=== PATIENT | male | born 1985 | race Caucasian/White ===

== ENCOUNTER 2016-09-18 19:58 | Inpatient (IN) ==
[2016-09-18] MEDS ORDERED: NS 1,000 ML IV ONE (20:53)
[2016-09-18] MEDS ORDERED: HUMULIN R IV ONE (20:53)
[2016-09-18] MEDS ORDERED: ZOFRAN ONE (20:54)
[2016-09-18] MEDS ORDERED: HUMULIN R (PARKWAY) ONE (20:55)
[2016-09-18 21:01] LABS: URINE CULTURE PL NEEDED? NO
[2016-09-18 21:01] LABS: MANUAL DIFF NEEDED? NO
[2016-09-18] MEDS ORDERED: ZOFRAN IV ONE (21:03)
[2016-09-18 21:04] LABS: BASO% 0.7 % (0.0-0.8); EOS% 4.2 % (0.0-10.0); HEMATOCRIT 41.8 % (42.0-52.0); HEMOGLOBIN 14.2 g/dL (14.0-18.0); IMM GRAN# 0.03 X1000 (0.0-0.04); IMM GRAN% 0.3 % (0.0-0.5); LYMPH% 19.7 % (20.5-51.1); MCH 31.1 PG (27-31); MCV 91.7 FL (81-99); MONO# 0.84 X1000 (0.11-0.59); MONO% 8.7 % (1.7-9.3); NEUT% 66.4 % (42.2-75.2); PLT 352 X1000 (130-400); RBC 4.56 XMIL (4.7-6.1)
[2016-09-18 21:05] LABS: BE -4.4 mmoll (-3.0-3.0); BLOOD TYPE ARTERIAL; DRAW SITE R RADIAL; METHB 1.1 % (0.0-1.5); O2(CT) 17.3 mL/dL (15.0-23.0); PCO2(98.6) 39 mmHg (35-45); PO2(98.6) 67 mmHg (60-100); SAMPLE BLOOD; SAO2 95.5 % (95.0-100.0); THB 13.5 g/dL (11.5-17.4); pH(98.6) 7.34 (7.35-7.45)
[2016-09-18 21:07] LABS: ALLEN TEST YES; MODALITY ROOM AIR
[2016-09-18 21:13] LABS: BILIRUBIN URINE NEGATIVE (NEGATIVE); BLOOD URINE NEGATIVE (NEGATIVE); CLARITY CLEAR (CLEAR); COLOR YELLOW; LEUKOCYTES URINE NEGATIVE (NEGATIVE); NITRITE URINE NEGATIVE (NEGATIVE); PROTEIN URINE NEGATIVE (NEGATIVE); UROBILINOGEN URINE NORMAL
[2016-09-18 21:19] LABS: AGAP 23; ALBUMIN 3.9 g/dL (3.5-5.0); ALKALINE PHOSPHATASE 297 U/L (32-122); BUN 23 mg/dL (8-22); CALCIUM 9.5 mg/dL (8.8-10.2); CHLORIDE 85 mmol/L (98-107); COSMO 290; GOT 560 U/L (10-34); GPT 635 U/L (10-44); LIPASE 63 U/L (13-60); POTASSIUM 4.9 mmol/L (3.5-5.1); SODIUM 128 mmol/L (136-145); TCO2 20 mmol/L (25-35); TOTAL PROTEIN 7.2 g/dL (6.3-8.3)
[2016-09-18 21:20] LABS: ACETONE SERUM MODERATE (NEGATIVE)
[2016-09-18 21:23] LABS: URINE CAST NONE SEEN /LPF; URINE CRYSTAL NONE SEEN /HPF; URINE EPITHELIAL CELLS <10 /HPF (<10); URINE SOURCE CLEAN CATCH
[2016-09-18] MEDS ORDERED: HUMULIN R (PARKWAY) 100 UNITS in NS 100 ML IV SCH (21:45)
[2016-09-18] MEDS ORDERED: ZOFRAN IV PRN (23:00)
[2016-09-18] MEDS ORDERED: NS 100 ML ONE (23:49)
[2016-09-19 00:26] LABS: UR AMPHETAMINES QUAL NONE DETECTED (NONE DETECT); UR BARBITUATES QUAL NONE DETECTED (NONE DETECT); UR BENZODIAZEPIN QUAL NONE DETECTED (NONE DETECT); UR CANNABINOIDS QUAL PRESUMPTIVE POSITIVE (NONE DETECT); UR COCAINE QUAL NONE DETECTED (NONE DETECT); UR MDMA QUAL NONE DETECTED (NONE DETECT); UR METHADONE QUAL NONE DETECTED (NONE DETECT); UR METHAMPHETAMINE QUAL NONE DETECTED (NONE DETECT); UR OPIATES QUAL NONE DETECTED (NONE DETECT); UR OXYCODONE QUAL NONE DETECTED (NONE DETECT); UR PCP QUAL NONE DETECTED (NONE DETECT); UR TCA QUAL NONE DETECTED (NONE DETECT)
[2016-09-19] MEDS ORDERED: MORPHINE IV PRN (00:32)
[2016-09-19] MEDS ORDERED: ATIVAN IV PRN (00:33)
[2016-09-19] MEDS ORDERED: MAGNESIUM SULFATE 2 GM/S.W.I. 2 GM/50 ML IVPB IV PRN (00:58)
[2016-09-19] MEDS: NS 1,000 ML IV SCH ×5 (00:58→10:18)
[2016-09-19] MEDS ORDERED: SODIUM PHOSPHATE 30 MMOL in D5W 250 ML IV PRN (00:58)
[2016-09-19] MEDS ORDERED: HUMULIN R 100 UNIT in NS 99 ML IV SCH (00:58)
[2016-09-19] MEDS ORDERED: D50W SYRINGE IV PRN (00:58)
[2016-09-19] MEDS ORDERED: POTASSIUM CHLORIDE 20 MEQ/SWI 20 MEQ/100 ML IVPB IV PRN ×2 (02:29→02:32)
--- NOTE | 2016-09-19 03:43 | PROVIDER DOCUMENTATION ---
This chart was entered by Maame Day Scribe, acting as scribe for Carlitos Atkinson MD. HPI-General Adult - General Chief Complaint: High Blood Sugar Stated Complaint: DIABETIC NO INSULIN 24 HRS Time Seen by Provider: 09/18/16 20:25 Source: patient Allergies/Adverse Reactions: Patient Allergies Allergy/AdvReac Type Severity Reaction Status Date / Time No Known Allergies Allergy Verified 08/13/16 16:24 Home Medications: Home Medication List Medication Instructions Recorded Confirmed Last Taken Type Insulin Glargine [Lantus] 30 unit SUBQ DAILY 04/27/15 04/27/15 08/13/16 History - History of Present Illness -Gen Adult Nature of Presenting Problems: Pt is a 31 year old male who came to the ED with a cc of High blood sugar because he ran out of insulin. pt reports he does not go to the Doctor he treats himself with animal insulin, which he ran out of yesterday. Location of Pain/Injury: reports: none Pain Radiation: reports: no radiation Quality of Pain: reports: none Onset/Duration: reports: unsure Timing: reports: still present Context/Activities at Onset: reports: none Modifying Factors: improves with: nothing Similar Symptoms Previously?: Yes Recently seen or treated by another doctor?: Yes - Diabetes Related Context Context: reports: high blood sugar Review of Systems - Adult - REVIEW OF SYSTEMS - ADULT Constitutional: denies: chills, fever Eyes: denies: discharge Ears, Nose, Mouth & Throat: denies: ear pain, sinus problem, throat pain Cardiovascular: denies: chest pain Respiratory: denies: cough, shortness of breath Gastrointestinal: reports: abdominal pain (mild epigastric), nausea, vomiting. denies: hematemesis, diarrhea, rectal bleeding Genitourinary: denies: dysuria, flank pain Musculoskeletal: denies: muscle aches Integumentary: denies: rash Neurological: denies: headache/migraines, numbness, paresthesia Psychiatric: reports: no symptoms reported, alcohol/drug dependence (quit IV meth use 1 month ago) Endocrine: reports: no symptoms reported Hematologic/Lymphatic: reports: no symptoms reported Allergic/Immunologic: reports: no symptoms reported All Other Systems: Reviewed and Negative Past History - Adult - PAST MEDICAL HISTORY-ADULT Review of Records: reports: Old Records Reviewed, Nursing Assessment Review, Medications Reviewed, Social history reviewed & non-contributory. Major Childhood Illnesses: reports: denies history Cardiovascular: reports: denies history Respiratory: reports: denies history Gastrointestinal: reports: denies history Obstetrical/Gynecological: reports: denies history Genitourinary: reports: denies history Musculoskeletal: reports: denies history Neurological: reports: denies history Endocrine/Immune: reports: Diabetes Other Conditions: reports: denies history - IMMUNIZATION STATUS Childhood Immunizations: See Nurse Assessment Flu Vaccine: See Nurse Assessment - FAMILY HISTORY Family History: reviewed, not pertinent Physical Exam-General - PHYSICAL EXAM-ADULT Initial Vital Signs Reviewed: Yes - CONSTITUTIONAL General Appearance: appears well, alert - EYES Eyes: PERRL/EOMI, pink conjunctivae - HEAD, EARS, NOSE, MOUTH & THROAT HENMT: normocephalic/atraumatic, moist mucous membranes - NECK Neck: non-tender, full range of motion - RESPIRATORY Respiratory: chest non-tender, lungs clear, normal breath sounds - CARDIOVASCULAR Cardiovascular: normal peripheral pulses, regular rate, rhythm - GASTROINTESTINAL (ABDOMEN) Abdominal Exam: normal bowel sounds, tenderness (RUQ, epigastric) - LYMPHATIC Lymphatic: no adenopathy - MUSCULOSKELETAL Back Exam: normal inspection, no CVA tenderness Extremity: normal range of motion, non-tender - SKIN Integumentary: normal color, normal turgor - NEUROLOGIC Neurologic: grossly normal - PSYCHIATRIC Psych/Mental Status: normal mood/affect, normal thought content, normal thought process, oriented x 3 Progress - PLAN OF CARE/RESULTS Progress/Plan/Lab Results: Vital Signs - 8 hr 09/18/16 20:01 Temperature 98.5 F Pulse Rate 117 H Respiratory Rate 20 Blood Pressure 93/57 O2 Sat by Pulse Oximetry 100 Laboratory Results - last 24 hr 09/18/16 09/18/16 09/18/16 20:04 20:20 20:24 WBC 9.63 RBC 4.56 L Hgb 14.2 Hct 41.8 L MCV 91.7 MCH 31.1 H MCHC 34.0 RDW Std Deviation 11.9 Plt Count 352 MPV 11.0 H Immature Gran % (Auto) 0.3 Neut % (Auto) 66.4 Lymph % (Auto) 19.7 L Mck[place] % (Auto) 8.7 Eos % (Auto) 4.2 Baso % (Auto) 0.7 Immature Gran # (Auto) 0.03 Neut # (Auto) 6.39 Lymph # (Auto) 1.90 Mck[place]ley # (Auto) 0.84 H Eos # (Auto) 0.40 Baso # (Auto) 0.07 Specimen Type Sample Site pH pCO2 pO2 HCO3 Base Excess Oxyhemoglobin ABG O2 Sat (Calculated) ABG O2 Saturation ABG Carboxyhemoglobin ABG Methemoglobin Abdulaziz Test A-a O2 Difference Total Hemoglobin Lactate Blood Gas Modality FiO2 % Sodium Potassium Chloride Carbon Dioxide Anion Gap BUN Creatinine Estimated GFR/1.73 m2 BUN/Creatinine Ratio Glucose POC Glucose 488 H Calculated Osmolality Calcium Total Bilirubin AST ALT Alkaline Phosphatase Total Protein Albumin Globulin Albumin/Globulin Ratio Lipase Urine Source CLEAN CATCH Urine Color YELLOW Urine Clarity CLEAR Urine pH 5.0 Ur Specific [place] 1.010 Urine Protein NEGATIVE Urine Ketones 2+(Moderate) A Urine Blood NEGATIVE Urine Nitrite NEGATIVE Urine Bilirubin NEGATIVE Urine Urobilinogen NORMAL Urine Microscopic RBC Not Reportable Urine WBC NEGATIVE Ur Epithelial Cells <10 Urine Crystals NONE SEEN Urine Bacteria 1+ Urine Casts NONE SEEN Urine Yeast NONE SEEN Urine Glucose 3+(500 mg/dL) A Acetone Level 09/18/16 09/18/16 20:24 20:44 WBC RBC Hgb Hct MCV MCH MCHC RDW Std Deviation Plt Count MPV Immature Gran % (Auto) Neut % (Auto) Lymph % (Auto) Mck[place] % (Auto) Eos % (Auto) Baso % (Auto) Immature Gran # (Auto) Neut # (Auto) Lymph # (Auto) Mckinley # (Auto) Eos # (Auto) Baso # (Auto) Specimen Type ARTERIAL Sample Site R RADIAL pH 7.34 L pCO2 39 pO2 67 HCO3 21.3 Base Excess -4.4 L Oxyhemoglobin 91.0 L ABG O2 Sat (Calculated) 17.3 ABG O2 Saturation 95.5 ABG Carboxyhemoglobin 3.50 H ABG Methemoglobin 1.1 Abdulaziz Test YES A-a O2 Difference 34.0 Total Hemoglobin 13.5 Lactate 2.10 Blood Gas Modality ROOM AIR FiO2 % 21.0 Sodium 128 L Potassium 4.9 Chloride 85 L Carbon Dioxide 20 L Anion Gap 23 BUN 23 H Creatinine 1.0 Estimated GFR/1.73 m2 > 60 BUN/Creatinine Ratio 23 Glucose 630 H* POC Glucose Calculated Osmolality 290 Calcium 9.5 Total Bilirubin 0.80 AST 560 H ALT 635 H Alkaline Phosphatase 297 H Total Protein 7.2 Albumin 3.9 Globulin 3.0 Albumin/Globulin Ratio 1.0 Lipase 63 H Urine Source Urine Color Urine Clarity Urine pH Ur Specific [place] Urine Protein Urine Ketones Urine Blood Urine Nitrite Urine Bilirubin Urine Urobilinogen Urine Microscopic RBC Urine WBC Ur Epithelial Cells Urine Crystals Urine Bacteria Urine Casts Urine Yeast Urine Glucose Acetone Level MODERATE A Orders Category Date Time Status ABG [RESP] Routine Lab 09/18/16 20:44 Completed ACETONE SERUM [CHEM] Stat Lab 09/18/16 20:24 Completed CBC WITH ELECTRONIC DIFF [HEME] Stat Lab 09/18/16 20:24 Completed CMP [COMPREHENSIVE METABOLIC PANEL] [CHEM] Stat Lab 09/18/16 20:24 Completed LIPASE [CHEM] Stat Lab 09/18/16 20:24 Completed ua [URINALYSIS PL W/POSS RFLX CULT] [URINALYSIS] Stat Lab 09/18/16 20:20 Completed 0.9% Sodium Chloride Inj [Ns] 1,000 ml Med 09/18/16 20:53 Active IV 999 mls/hr Insulin Human Regular ([place] [Humulin R ([place])] Med 09/18/16 20:55 Discontinued 1 units .ROUTE .STK-MED ONE Insulin Human Regular [Humulin R] Med 09/18/16 20:53 Discontinued 5 unit IV NOW ONE Ondansetron [Zofran] Med 09/18/16 20:54 Discontinued 4 mg .ROUTE .STK-MED ONE Ondansetron [Zofran] Med 09/18/16 21:03 Discontinued 4 mg IV NOW ONE Result Diagrams: 09/18/16 20:24 09/18/16 20:24 Departure - Departure Date of Disposition Decision: 09/18/16 Time of Disposition Decision: 22:00 DIAGNOSIS: Diabetic ketoacidosis Qualifiers: Diabetes mellitus type: type 1 Diabetes mellitus complication detail: without coma Qualified Code(s): E10.10 - Type 1 diabetes mellitus with ketoacidosis without coma Disposition: ADMITTED INPATIENT 09 Certified Medical Emergency: Emergent Condition: Fair - Critical Care Note This patient required my direct & personal management of CC.: Yes Total Time (mins): 60 Critical Care Statement: This patient required my direct personal management to treat or rule out processes, the absence of which, could potentiallly result in sudden, clinically significant life or limb threatening deterioration. This chart was documented by the indicated scribe, (Maame Day Scribe) and accurately reflects the services I performed and decisions made by me, Carlitos Strong MD, as attested by the provider's signature.
[2016-09-19 06:01] LABS: AGAP 12; BUN 22 mg/dL (8-22); CALCIUM 8.2 mg/dL (8.8-10.2); CHLORIDE 97 mmol/L (98-107); COSMO 278; MAGNESIUM 1.8 mg/dL (1.5-2.7); POTASSIUM 4.1 mmol/L (3.5-5.1); SODIUM 133 mmol/L (136-145); TCO2 24 mmol/L (25-35)
[2016-09-19] MEDS ORDERED: HUMALOG DOSE (PARKWAY) SUBQ SCH ×2 (07:00→09:00)
[2016-09-19] MEDS: LANTUS INSULIN (PARKWAY) SUBQ SCH ×2 (07:18→08:06)
[2016-09-19 07:29] VITALS: BP 110/46
--- NOTE | 2016-09-19 09:40 | HISTORY AND PHYSICAL ---
CHIEF COMPLAINT: Elevated blood sugar. HISTORY OF PRESENT ILLNESS: Patient is a 31-year-old, intentionally noncompliant individual. States he presented to the emergency department because he ran out of insulin. Notes that he uses "animal insulin". He states that he does not go to a doctor and will not go to a doctor. States he will not let a doctor control him. When asked to clarify this, he states the doctors asking to check his insulin multiple times a day if he is going to take insulin and he states this is not necessary, that he has been treated whenever he wants according to have refills. States that he sometimes takes 70/30 once a day and sometimes does not. The amount varies according to how he feels. PAST MEDICAL HISTORY: 1. Intentional noncompliance. 2. Type 1 diabetes. 3. Chronic IV drug abuse with meth, although he states he stopped a month ago. 4. Chronic alcohol use. REVIEW OF SYSTEMS: As noted above. Initially on admission he was having abdominal pain, nausea, vomiting. Denies any fevers or chills. Denies any dysuria, frequency. Denies any hesitancy, polyuria, polydipsia, although patient is quite reluctant to answer questions. FAMILY HISTORY: Noncontributory. SOCIAL HISTORY: As noted, patient does use drugs. He does smoke. Drinks alcohol. He has no interest in listening as to the perils of each of these items. ALLERGIES: No known drug allergies. PHYSICAL EXAMINATION: VITAL SIGNS: Temperature 98, pulse 106, respiratory rate 25, blood pressure 80/42. Sat 97% on room air. GENERAL: Patient is awake, alert. He is in no respiratory distress. Unkempt appearing white male, who is lying flat in the bed. HEENT: Normocephalic, atraumatic. ANTONIO. NECK: Supple. CARDIOVASCULAR: Regular rate. CHEST: Relatively clear. ABDOMEN: Soft, nondistended. EXTREMITIES: Moves all extremities. NEUROLOGIC: No changes. SKIN: Warm and dry. No rashes. LABORATORIES: CBC normal. PH 7.34. Base excess of -4.4. Sodium 128, glucose 630. AST 560, ALT 635, alkaline phosphatase 297. There is 3+ glucose and moderate acetone. ASSESSMENT: 1. Diabetic ketoacidosis. 2. Diabetes type 1. 3. Acute hepatitis. 4. Chronic tobacco abuse. 5. Chronic intentional noncompliance. PLAN: We will admit the patient to hospital. IV insulin. Place on DKA protocol and will follow. cc: Graham Hull MD
--- NOTE | 2016-09-20 07:13 | DISCHARGE SUMMARY ---
ADMISSION DATE: 09/18/2016 DISCHARGE DATE: 09/19/2016 DISCHARGE DIAGNOSES: 1. Diabetic ketoacidosis, resolved. 2. Type 1 diabetes with poor home control. 3. Intentional medical noncompliance. 4. Acute hepatitis likely secondary to fatty liver, and certainly could be due to his chronic drug usage. Hepatitis profile is still pending. CONSULTATIONS: None. PROCEDURES: None. BRIEF HOSPITAL COURSE: Patient is a 31-year-old male, who was admitted as noted in the history of present illness. Patient is unwilling to answer questions, unwilling to listen to reason. He states that he can take his insulin according to how he feels, and whenever he feels like taking it. States that "no doctors are going to control him." States he is not going to check his blood sugar on any regular basis because that does not make any sense to him, and states that he is leaving the hospital. PLAN: As patient is awake, alert, oriented, his is out of DKA and is off an insulin drip, we will not prevent him from leaving the hospital. Certainly we would prefer him to stay in the hospital in and get more education on diabetes, diet, insulin and checking his blood sugar although the patient is adamant that this is not going to work and that he is only going to check his sugar when he wants to. States he takes a 70/30 according to how he feels and sometimes does not take it at all. His hepatitis profile is currently pending. Discussed with patient he needs to call the hospital back in a few days to follow up on that. DISCHARGE TIME: 40 minute was spent in total care. cc: Graham Hull MD
[2016-09-20 10:15] LABS: HEPATITIS PROFILE ACUTE SEE COMMENTS
== END 2016-09-19 10:36 | disposition home or self-care (01) ==
LOC: P.ED 19:58 → SUATTDRO 23:24 → P.ICU 23:24
PROVIDERS: ADMIT Family Medicine; ATTEND Family Medicine